=== PATIENT | female | born 1985 | race Caucasian/White ===

== ENCOUNTER 2018-08-18 19:32 | Emergency (ER) | payer OTHER ==
[~2018-08-18] VITALS: Ht 152.4 cm; Wt 52.2 kg
[~2018-08-18 19:32] MED LIST: CEPH500 PO; RXHYDACE PO; SULTRIDS PO
[2018-08-18] MEDS ORDERED: QUET100 PO (19:43)
[2018-08-18] MEDS ORDERED: DULO60 PO (19:43)
[2018-08-18] MEDS ORDERED: Monodox100 MG PO (21:03)
== END 2018-08-18 21:13 | disposition home or self-care (01) ==
LOC: ER 19:32
DX: J18.9 Pneumonia, unspecified organism (principal); Z79.899 Other long term (current) drug therapy; F32.9 Major depressive disorder, single episode, unspecified; F17.210 Nicotine dependence, cigarettes, uncomplicated
CPT/HCPCS: 71046; 99283-25

== ENCOUNTER → 2018-12-23 | Outpatient (CLI) | payer OTHER ==
[~2018-12-23] MED LIST changes: +BUPRENORPHINE HC8 MG SL; +DULO60 PO; +Monodox100 MG PO; +PRENA1 CHEW TA1.4 MG PO; +QUET100 PO; +Veetids 500500 MG PO
[2018-12-25 03:08] LABS: CHLAMYDIA TRACHOMATIS, NAA Negative (Negative); NEISSERIA GONORRHOEAE, NAA Negative (Negative)
== END | disposition home or self-care (01) ==
LOC: LAB 10:58 → LAB SHORT 10:58
PROVIDERS: Advanced Practice Midwife
DX: Z11.3 Encounter for screening for infections with a predominantly sexual mode of transmission (principal)
CPT/HCPCS: 87491; 87591

== ENCOUNTER → 2019-01-06 | Outpatient (CLI) | payer OTHER ==
[2019-01-07 13:17] LABS: U Amphetamine Screen Not Detected; U Barbituate Screen Not Detected; U Benzodiazapine Screen Not Detected; U Buprenorphine Screen DETECTED; U Cannabinoids Screen Not Detected; U Cocaine Screen Not Detected; U Methadone Screen Not Detected; U Methamphetamine Screen Not Detected; U Opiates Screen DETECTED; U Oxycodone Screen Not Detected; U Phencyclidine Screen Not Detected; U Propoxyphene Screen Not Detected
[2019-01-13 14:06] LABS: TRICYCLIC ANTIDEP Negative ng/mL (Cutoff=100)
== END ==
LOC: LAB SHORT 14:30 → LAB 14:30
PROVIDERS: Obstetrics & Gynecology
DX: F11.20 Opioid dependence, uncomplicated (principal)
CPT/HCPCS: 80369; G0480; G0481

== ENCOUNTER 2019-01-08 22:22 | Emergency (ER) | payer OTHER ==
[~2019-01-08] VITALS: Ht 154.9 cm; Wt 48.5 kg
[~2019-01-08 22:22] MED LIST changes: -BUPRENORPHINE HC8 MG SL; -PRENA1 CHEW TA1.4 MG PO; -Veetids 500500 MG PO
[2019-01-08] MEDS ORDERED: BUPRENORPHINE HC8 MG SL (22:31)
[2019-01-08] MEDS ORDERED: PRENA1 CHEW TA1.4 MG PO (22:32)
[2019-01-08] MEDS ORDERED: Veetids 500500 MG PO (23:09)
== END 2019-01-08 23:20 | disposition home or self-care (01) ==
LOC: ER 22:22
DX: O99.612 Diseases of the digestive system complicating pregnancy, second trimester (principal); K04.7 Periapical abscess without sinus; O99.332 Smoking (tobacco) complicating pregnancy, second trimester; Z3A.15 15 weeks gestation of pregnancy
CPT/HCPCS: 99282

== ENCOUNTER → 2021-01-06 | Outpatient (CLI) | payer OTHER ==
[~2021-01-06] MED LIST changes: +Acetaminophen650 M1 PO; +BUPRENORPHINE HC8 MG SL; +DOCU100 PO; +IBUP800 PO; +Nicoderm Cq1 EAC1 TOP; +OMEP20ER PO; +PRENA1 CHEW TA1.4 MG PO; +Veetids 500500 MG PO
== END | disposition home or self-care (01) ==
LOC: LAB SHORT 19:29 → LAB 19:29
DX: O09.893 Supervision of other high risk pregnancies, third trimester (principal)
CPT/HCPCS: 87081; 87150

== ENCOUNTER 2021-01-20 05:30 | Inpatient (IN) | payer OTHER ==
[~2021-01-20] VITALS: Ht 154.9 cm; Wt 58.2 kg
[~2021-01-20 05:30] MED LIST changes: -Acetaminophen650 M1 PO; -DOCU100 PO; -IBUP800 PO
[2021-01-20 06:17] LABS: BASOPHILS ABSOLUTE AUTO 0.03 K/mm3 (0.00-0.23); BASOPHILS PERCENT AUTO 0 % (0-2); EOSINOPHILS ABSOLUTE AUTO 0.04 K/mm3 (0.00-0.68); EOSINOPHILS PERCENT AUTO 0 % (0-6); Hematocrit 41.5 % (33.0-51.0); Hemoglobin 13.9 g/dL (11.5-16.0); IMMATURE GRAN ABSOLUTE AUTO 0.08 K/mm3 (0.00-0.10); IMMATURE GRAN PERCENT AUTO 1 % (0-1); LYMPHOCYTES ABSOLUTE AUTO 2.58 K/mm3 (0.84-5.20); LYMPHOCYTES PERCENT AUTO 22 % (21-46); MONOCYTES ABSOLUTE AUTO 0.47 K/mm3 (0.16-1.47); MONOCYTES PERCENT AUTO 4 % (4-13); Mean Corpuscular HGB 28.1 pg (26.0-34.0); Mean Corpuscular HGB Conc 33.5 g/dL (31.5-36.5); Mean Corpuscular Volume 84 fL (80-100); Mean Platelet Volume 10.8 fL (9.1-12.4); NEUTROPHILS ABSOLUTE AUTO 8.39 K/mm3 (1.96-9.15); NEUTROPHILS PERCENT AUTO 72 % (41-73); Platelet Count 228 K/mm3 (150-400); RDW Coefficient Variation 15.5 % (11.7-14.2); RDW Standard Deviation 46.9 fL (35.1-46.3); Red Blood Cell Count 4.94 M/mm3 (3.80-5.20); White Blood Cell Count 11.59 K/mm3 (4.00-11.30)
[2021-01-20 06:23] LABS: U Amphetamine Screen Not Detected; U Barbituate Screen Not Detected; U Benzodiazapine Screen Not Detected; U Buprenorphine Screen DETECTED; U Cannabinoids Screen Not Detected; U Cocaine Screen Not Detected; U Methadone Screen Not Detected; U Methamphetamine Screen Not Detected; U Opiates Screen Not Detected; U Oxycodone Screen Not Detected; U Phencyclidine Screen Not Detected; U Propoxyphene Screen Not Detected
[2021-01-20 06:50] LABS: Alanine Aminotransfer (ALT/SGP 19 U/L (12-78); Albumin, Blood 3.5 g/dL (3.4-5.0); Albumin/Globulin Ratio 0.6 (0.8-1.8); Alk Phos 216 U/L (50-136); Anion Gap 10 mmol/L (6-16); Aspartate Aminotrans (AST/SGOT 27 U/L (12-37); Bilirubin, Total 0.3 mg/dL (0.1-1.0); Blood Urea Nitrogen 9 mg/dL (8-24); Bun/Creatinine Ratio 17.3 (12.0-20.0); CO2, Blood 22 mmol/L (21-32); Calcium, Blood 9.1 mg/dL (8.5-10.1); Chloride, Blood 101 mmol/L (98-108); Creatinine, Blood 0.52 mg/dL (0.40-1.00); Globulin, Blood 5.6 g/dL (2.2-4.0); Glomerular Filtration Rate >60 (60-); Glucose, Blood 82 mg/dL (70-99); Potassium, Blood 3.5 mmol/L (3.5-5.5); Sodium, Blood 133 mmol/L (136-145); Total Protein, Blood 9.1 g/dL (6.4-8.2)
--- NOTE | 2021-01-20 08:29 | NUR ---
01/20/21 0829 Karl Santana REPEAT SECTION WITH BILATERAL SALPINGECTOMY BY DR. COMBS, MALE INFANT BORN AT 0757 9/9 APGARS, CORD SEGMENT COLLECTED FOR NB TOX SCREENING AND CORD BLOOD COLLECTED FOR BLOOD TYPING, BOTH GIVEN TO Marie HILL RN
[2021-01-21 05:39] LABS: BASOPHILS ABSOLUTE AUTO 0.02 K/mm3 (0.00-0.23); BASOPHILS PERCENT AUTO 0 % (0-2); EOSINOPHILS ABSOLUTE AUTO 0.05 K/mm3 (0.00-0.68); EOSINOPHILS PERCENT AUTO 1 % (0-6); Hematocrit 35.5 % (33.0-51.0); Hemoglobin 11.6 g/dL (11.5-16.0); IMMATURE GRAN ABSOLUTE AUTO 0.04 K/mm3 (0.00-0.10); IMMATURE GRAN PERCENT AUTO 0 % (0-1); LYMPHOCYTES PERCENT AUTO 19 % (21-46); MONOCYTES ABSOLUTE AUTO 0.46 K/mm3 (0.16-1.47); MONOCYTES PERCENT AUTO 5 % (4-13); Mean Corpuscular HGB 27.9 pg (26.0-34.0); Mean Corpuscular HGB Conc 32.7 g/dL (31.5-36.5); Mean Corpuscular Volume 85 fL (80-100); Mean Platelet Volume 10.5 fL (9.1-12.4); NEUTROPHILS ABSOLUTE AUTO 6.88 K/mm3 (1.96-9.15); NEUTROPHILS PERCENT AUTO 75 % (41-73); Platelet Count 212 K/mm3 (150-400); RDW Coefficient Variation 15.7 % (11.7-14.2); RDW Standard Deviation 47.9 fL (35.1-46.3); Red Blood Cell Count 4.16 M/mm3 (3.80-5.20); White Blood Cell Count 9.15 K/mm3 (4.00-11.30)
[2021-01-21 07:11] LABS: HBSAG SCREEN Negative (Negative); HCV ANTIBODY >11.0 (0.0-0.9); HIV SCREEN 4TH GENERATION WRFX Non Reactive (Non Reactive)
--- NOTE | 2021-01-21 10:55 | NUR ---
HOTLINE CALLED LEFT MESSAGE WITH DARLENE R/T MOM HX OF DRUG USE AND FEW AMOUNT OF VISITS, NO CONCERNS WITH THIS RN FOR MOTHER CARE
--- NOTE | 2021-01-21 20:07 | NUR ---
Mom was in bathroom, baby was in crib. Support person in room with baby.
[2021-01-22] MEDS ORDERED: IBUP800 PO (14:08)
[2021-01-22] MEDS ORDERED: DOCU100 PO (14:08)
[2021-01-22] MEDS ORDERED: Acetaminophen650 M1 PO (14:09)
--- NOTE | 2021-01-22 17:02 | NUR ---
discharge instructions given to patient. prescriptions filled and at bs. questions answered and will follow up with dr magana within 2 weeks of sooner if any problems or concerns arise. Will also follow up here at [facility] for ppfu. Ppfu not scheduled yet as baby is not being discharged until at least Sunday for ESC. discharged to boarder status.
[2021-01-23 12:07] LABS: HEPATITIS C QUANTITATION HCV Not Detected IU/mL (.)
== END 2021-01-22 17:00 | disposition home or self-care (01) | DRG 784 ==
LOC: BC 05:30
PROVIDERS: ADMIT Obstetrics & Gynecology
PROC: 10D00Z1 Extraction of Products of Conception, Low, Open Approach (ICD-10-PCS; principal; 2021-01-20 07:30)
PROC: 0UB70ZZ Excision of Bilateral Fallopian Tubes, Open Approach (ICD-10-PCS; 2021-01-20 07:30)
DX: O34.219 Maternal care for unspecified type scar from previous cesarean delivery (principal); O99.324 Drug use complicating childbirth; F11.20 Opioid dependence, uncomplicated; B19.20 Unspecified viral hepatitis C without hepatic coma; Z3A.39 39 weeks gestation of pregnancy; Z37.0 Single live birth; Z71.6 Tobacco abuse counseling; O99.334 Smoking (tobacco) complicating childbirth; F17.210 Nicotine dependence, cigarettes, uncomplicated; Z67.40 Type O blood, Rh positive
CPT/HCPCS: 36415; 80053; 85025; 86592; 86762; 86803; 86850; 86900; 86901; 87340; 87389; 87522; 88302; 94640; 94760; A9270; J0690; J1100; J1885; J2590; J2765; J7120